=== PATIENT | male | born 1995 | race Caucasian/White ===

== ENCOUNTER 2019-04-28 18:16 | Emergency (ER) | payer OTHER ==
[~2019-04-28] VITALS: Ht 198.1 cm; Wt 99.8 kg
[2019-04-28 18:39] LABS: ABSOLUTE NEUTROPHILS 4.6 thou/uL (1.4-8.2); BASOPHILS 0.5 % (0.0-2.0); EOSINOPHILS 5.7 % (0.0-3.0); HEMATOCRIT 42.1 % (42.0-52.0); HEMOGLOBIN 14.4 gm/dL (14.0-18.0); LYMPHOCYTES 27.8 % (24.0-44.0); MCH 29.9 pg (26.0-34.0); MCHC 34.1 g/dL (28.0-37.0); MCV 87.6 fL (80.0-100.0); MONOCYTES 8.6 % (1.0-8.0); PLATELET COUNT 207 thou/uL (150-400); POLYS 57.4 % (36.0-66.0); RBC 4.81 mil/uL (4.50-6.00); RDW 12.5 % (10.5-14.5)
[2019-04-28 18:45] LABS: ANION GAP 9 mmol/L (7-16); BUN 22 mg/dL (7-18); CALCIUM 9.6 mg/dL (8.5-10.1); CHLORIDE 102 mmol/L (98-107); CO2 28 mmol/L (21-32); CREATININE 0.9 mg/dL (0.7-1.3); GLUCOSE 98 mg/dL (74-106); POTASSIUM 3.7 mmol/L (3.5-5.1); SODIUM 139 mmol/L (136-145)
[2019-04-28 18:55] LABS: ALBUMIN 4.1 g/dL (3.4-5.0); MAGNESIUM 1.9 mg/dL (1.8-2.4); SGOT 16 U/L (15-37); SGPT 12 U/L (30-65); TOTAL PROTEIN 7.7 g/dL (6.4-8.2); TROPONIN-I <0.06 ng/mL (<0.06)
[2019-04-28 20:47] VITALS: BP 149/65
--- NOTE | 2019-04-29 07:48 | EKG ---
[place] [address] [facility] [place] [address] ELECTROCARDIOGRAM REPORT Name: WAN PRESCOTT Room #: DEP ER Lesa#: [id number] ������������������ Admission: 04/28/19 ������������������ Attend Phys: Discharge: 04/28/19 ������������������ Date of : [birth year] Report #: [id number] ����������������������������������������������������������������� [id number] THIS REPORT FOR: //name// [facility] ED Test Date: 2019-04-28 Test Time: 18:22:06 Pat Name: WAN PRESCOTT Department: Room: Gender: M Linesperson: jlambertz : 1995 Requested By: Joe Mena Order Number: [id number] MD: Ronald Reyes Measurements Intervals [place] Rate: 77 P: 39 AR: 161 QRS: 60 QRSD: 81 T: 28 QT: 354 QTc: 401 Interpretive Statements Sinus rhythm Normal tracing No previous ECG available for comparison Electronically Signed On 04-29-2019 7:48:44 CDT by Ronald Reyes [email or web address] ��������������������������������������������� <ELECTRONICALLY SIGNED> ���������������������������������������� By: Ronald Reyes MD, [facility] ��������������������������������������������� 04/29/19 [id number] 182 21 Ronald Reyes MD, FACC /EPI
== END 2019-04-28 20:47 | disposition home or self-care (01) ==
LOC: ER 18:16
PROVIDERS: Emergency Medicine
DX: R00.2 Palpitations (principal); F17.210 Nicotine dependence, cigarettes, uncomplicated; Z95.0 Presence of cardiac pacemaker